=== PATIENT | male | born 1990 | race Caucasian/White ===

== ENCOUNTER 2017-04-19 11:43 | Emergency (ER) | payer BC ==
[~2017-04-19] VITALS: Ht 180.3 cm; Wt 95.0 kg
[~2017-04-19 11:43] MED LIST: MOTR200T PO
[2017-04-19 11:47] VITALS: BP 133/89; PULSE 110; RESP 16; TEMP 98.6; O2SAT 100
--- NOTE | 2017-04-19 11:54 | PD ---
HPI . right groin edema Chief Complaint: Edema Time Seen by Provider: 11:54 Travel History International Travel<30 days: No Contact w/Intl Traveler<30days: No Traveled to known affect area: No History of Present Illness HPI 27-year-old male with no significant past medical history other than tobaccoism here with complaints of a right groin mass that has been present for the past 4 months. Patient tells me that he went to a hospital in [facility] and had a full workup including ultrasound and was told that he would need to see a surgeon for biopsy and potential removal. Patient says that he called surgeon and there was some issue as far as getting an appointment because he does not have a primary care provider. He did call looking for a primary care provider, but has been told that he cannot get an appointment until the end of this month. He is here hoping that I can expedite either a primary care visit or a biopsy. He was previously treated with antibiotics that did not provide much improvement. He tells me he's had full labs and ultrasound. He was told that this is a enlarged lymph node. PFSH Social History Alcohol Use: Yes (RARE) Tobacco Use: Yes (1/2 PPD) Substance Use: No Allergies-Medications (Allergen,Severity, Reaction): Coded Allergies: No Known Allergies (Unverified , 04/19/17) Reported Meds & Prescriptions Reported Meds & Active Scripts Active Review of Systems General / Constitutional: No: Fever Eyes: No: Visual changes HENT: No: Headaches Cardiovascular: No: Chest Pain or Discomfort Respiratory: No: Shortness of Breath Gastrointestinal: Positive: Other (right groin mass), No: Abdominal Pain Genitourinary: No: Dysuria Musculoskeletal: No: Pain Skin: No Rash Neurologic: No: Weakness Psychiatric: No: Depression Endocrine: No: Polydipsia Hematologic/Lymphatic: No: Easy Bruising Physical Exam Narrative GENERAL: AAO x 3, no acute distress, Well-nourished, well-developed patient. SKIN: Warm and dry. No visible rashes or bruising. HEAD: Normocephalic and atraumatic. EYES: No scleral icterus. No injection or drainage. EOM intact, PERRLA ENT: No nasal drainage noted. Mucous membranes pink. Airway patent. NECK: Supple, trachea midline. No JVD. CARDIOVASCULAR: Regular rate and rhythm without murmurs, gallops, or rubs. Mild tachycardia on examination 104 RESPIRATORY: Breath sounds equal bilaterally. No accessory muscle use. No rhonchi or rales. GASTROINTESTINAL: Abdomen soft, non-tender, nondistended. GROIN: Lauren hvac r tech present, 7cm x 5 cm groin mass, firm and tender to touch. no fluctuance or erythema. does not feel like fluid collection EXTREMITIES: No cyanosis or edema. BACK: Nontender without obvious deformity. No CVA tenderness. 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 Data Data Last Documented VS Vital Signs Date Time Temp Pulse Resp B/P Pulse Ox O2 Delivery O2 Flow Rate FiO2 04/19/17 12:08 20 98 Room Air 04/19/17 11:47 98.6 110 133/89 MDM Medical Decision Making Medical Screen Exam Complete: Yes Emergency Medical Condition: Yes Medical Record Reviewed: Yes Differential Diagnosis Groin mass, lymphoma, less likely cat scratch fever Narrative Course 27-year-old male with no significant past medical history other than tobaccoism here with groin mass for the past 4 months. On examination patient appears to have 7 cm x 5 cm mass. Apparently he is here for biopsy versus getting into a primary care doctor earlier. He has no other specific complaints. I discussed the case with Dr. Carbajal. We recommend trying to expedite his PCP visit. This is concerning for lymphoma. I have called [facility] and they will see him tomorrow. He must call the office and ask for Osiris and she will make an appointment for him later on in the day. I've explained this to the patient. He is understanding. Diagnosis Primary Impression: Right groin mass Referrals: [facility] Patient Instructions: General Instructions Additional Instructions: Please call [facility] in the morning at 8 AM. Someone named Osiris will assist you in getting an appointment for that day. Med/Other Pt SpecificInfo: No Change to Meds Disposition: 01 DISCHARGE HOME Condition: Stable Viviana Toro Apr 19, 2017 11:54
== END 2017-04-19 12:35 | disposition home or self-care (01) ==
LOC: NEPK 11:43
DX: R19.09 Other intra-abdominal and pelvic swelling, mass and lump (principal); F17.200 Nicotine dependence, unspecified, uncomplicated
CPT/HCPCS: 99281

== ENCOUNTER 2017-05-15 06:15 | Day surgery (SDC) | payer BC ==
[~2017-05-15] VITALS: Ht 180.3 cm; Wt 85.5 kg
[2017-05-15] MEDS ORDERED: MIDAZOLAM HCL 2 MG/2 ML VIAL IV ONE (06:16)
[2017-05-15 06:47] VITALS: BP 141/75; PULSE 82; RESP 20; TEMP 98.4; O2SAT 97
[2017-05-15] MEDS ORDERED: DILA2TAB2 PO (06:52)
[2017-05-15 07:13] LABS: AUTOMATED NEUTROPHIL # 22.1 TH/MM3 (1.8-7.7); BASOPHIL # 0.3 TH/MM3 (0-0.2); BASOPHIL % 1.2 % (0.0-2.0); EOSINOPHIL # 0.4 TH/MM3 (0-0.4); EOSINOPHIL % 1.6 % (0.0-4.0); HEMATOCRIT 39.1 % (39.0-51.0); HEMO FLAGS DIFF FINAL; LYMPH % 5.8 % (9.0-44.0); LYMPHOCYTE # 1.5 TH/MM3 (1.0-4.8); MEAN CELL VOLUME 85.7 FL (80.0-100.0); MEAN CORPUSCULAR HEMOGLOBIN 29.1 PG (27.0-34.0); MONO % 4.6 % (0.0-8.0); NEUT % 86.8 % (16.0-70.0); PLATELET COUNT 402 TH/MM3 (150-450); RED BLOOD COUNT 4.57 MIL/MM3 (4.50-5.90); RED CELL DISTRIBUTION WIDTH 13.8 % (11.6-17.2); WHITE BLOOD COUNT 25.5 TH/MM3 (4.0-11.0)
[2017-05-15] MEDS ORDERED: ceFAZolin 2 GM PREMIX 50 ML - implanted port/tunneled catheter insertion IV SCH (07:15)
[2017-05-15] MEDS ORDERED: POVIDONE IODINE 5% (ANTISEPSIS KIT) 4 APPLICATIONS EACH NARE SCH (07:15)
[2017-05-15] MEDS ORDERED: MUPIROCIN 2% OINT 1 APPLIC/GM SYR EACH NARE SCH (07:15)
[2017-05-15] MEDS ORDERED: VANCOMYCIN 1000 MG/NS 250 ML - implanted port/tunneled catheter IV SCH ×2 (07:15)
[2017-05-15] MEDS ORDERED: CHLORHEXIDINE GLUCONATE 2 % 1 PACK (2 CLOTHS) TOPICAL SCH (07:15)
[2017-05-15] MEDS ORDERED: SODIUM CHLORIDE 0.9% 1000 ML IV SCH (07:15)
[2017-05-15 07:21] LABS: APTT (PATIENT) 33.9 SEC (24.3-30.1); PROTHROMBIN TIME - PATIENT 11.4 SEC (9.8-11.6)
[2017-05-15] MEDS ORDERED: MIDAZOLAM HCL 2 MG/2 ML VIAL ONE (07:53)
[2017-05-15] MEDS ORDERED: LIDOCAINE 1%/EPINEPHrine 1:200,000 PF SOLN 30 ML VIAL ONE (08:04)
[2017-05-15] MEDS ORDERED: SODIUM CHLORIDE 0.9% FLUSH 10 ML FLUSH IVF PRN (09:00)
[2017-05-15 09:05] VITALS: BP 123/68; PULSE 75; RESP 16; TEMP 98.5; O2SAT 94
--- NOTE | 2017-05-15 09:14 | PD.RAD ---
Post Procedure Progress Note Pre Procedure Diagnosis: (1) Hodgkin lymphoma Post Procedure Diagnosis: (1) Hodgkin lymphoma Procedure Date: May 15, 2017 Supervising Radiologist: Roel Foote Proceduralist/Assist: Faheem Sanchez, RT(R), Shameka Vera RT(R)(CV), Will Lewis, RT(R) Anesthesia: Local, Analgesia, Conscious Sedation Plan of Activity Patient to Unit: [facility]OPU Patient Condition: Good See PACS Report for procedural detail/treatment Central Venous Access Device Procedure 1 Right Internal Jugular Infusaport Placement single lumen Hebrew: 8 Roel Foote MD May 15, 2017 09:14
[2017-05-15 09:20] VITALS: BP 121/65; PULSE 78; RESP 18; O2SAT 93
[2017-05-15 09:50] VITALS: BP 120/64; PULSE 75; RESP 20; O2SAT 93
[2017-05-15 10:20] VITALS: BP 111/56; PULSE 67; RESP 18; O2SAT 94
[2017-05-15 10:50] VITALS: BP 116/61; PULSE 58; RESP 18; O2SAT 98
--- NOTE | 2017-05-15 16:20 | RADRPT ---
EXAM DATE/TIME: 05/15/2017 08:11 [facility] COMPARISON: No previous studies available for comparison. INDICATIONS : Right leg swelling with right groin pain. MEDICAL HISTORY : Right leg swelling with right groin pain, enlarged pevlic lymph gland. SURGICAL HISTORY : Lymph node biopsy. ENCOUNTER: Initial ACUITY: 7-11 months PAIN SCORE: 6/10 LOCATION: Right groin FLUORO TIME: 0.3 minutes IMAGE SERIES: 1 SEDATION TIME: 30 minutes ACCESS: Right internal jugular vein SEDATION: 1.) 6 mg midazolam (Versed) IV 2.) 300 mcg fentanyl (Sublimaze) IV Prophylactic antibiotics were administered with appropriate pre-procedure timing. Vancomycin within 2 hours of procedure, Ancef (or alternative) within 1 hour of procedure. DEVICE: 1. 8 [place] single lumen Smart Port PROCEDURE : 1. Continuous pulse oximetry and EKG monitoring. 2. Intravenous conscious sedation. 3. Ultrasound guidance for venous access. 4. Fluoroscopic guided implantable central venous port placement. The patient was placed supine. The neck was prepped in sterile fashion. Full sterile technique was u sed, including cap, mask, sterile gloves and gown, and a large sterile sheet. Hand hygiene and 2% ch lorhexidine Betadine was utilized per protocol for cutaneous antisepsis with appropriate dry time for site. Sterile gel and sterile probe cover were utilized for ultrasound guidance. The skin and sub cutaneous tissues were infiltrated with local anesthetic solution. Under direct ultrasound guidance, central venous access was accomplished in the targeted vessel. The ultrasound images depicting access guidance were stored and saved to PACS for permanent record. A s ubcutaneous pocket was created using blunt dissection. The port was introduced to the pocket. The c atheter tubing was fed through a subcutaneous tunnel to the venotomy site. The catheter tubing was c ut to a suitable length and then was introduced through a valved Peel-Away sheath and positioned with catheter tubing tip at the cavo-atrial junction level. The pocket incision was closed with subcutic ular Vicryl suture. Steri-Strips were applied. The port was flushed and locked with heparin solutio n per protocol. Sterile dressing was applied to the site. The patient tolerated the procedure well. Conscious sedation was performed with the prescribed dosages and duration as above in the presence of an independent trained radiology nurse to assist in the monitoring of the patient. EKG and oximetry remained stable throughout the procedure. The patient tolerated the procedure well and there were no complications. The patient was sent to post anesthesia recovery in stable condition. CONCLUSION: Uncomplicated ultrasound and fluoroscopic guided implanted central venous port catheter placement as described in detail above. An 8 [place] Power port was placed. Roel Foote MD on May 15, 2017 at 16:18 Board Certified Radiologist. This report was verified electronically.
== END 2017-05-15 11:15 | disposition home or self-care (01) ==
LOC: HROP 06:15 → HRIP 06:15 → HROP 11:15
PROVIDERS: ATTEND Internal Medicine Hematology & Oncology
DX: C81.90 Hodgkin lymphoma, unspecified, unspecified site (principal)
CPT/HCPCS: 36561; 76937; 77001; 85025; 85610; 85730; 94060; 94726; 94729; 99152; 99153; C1788; J0690; J1642; J2250; J3010; J3370; J7050